=== PATIENT | female | born 1955 | race Caucasian/White ===

== ENCOUNTER 2021-05-05 13:38 | Emergency (ER) | payer OTHER, SELFPAY ==
--- NOTE | ~2021-05-05 | US_ITS ---
EXAMINATION: US VENOUS WITH DOPPLER LOWER EXTREMITY, LEFT CLINICAL INFORMATION: Left calf pain. Evaluate for deep vein thrombosis. COMPARISON: None TECHNIQUE: Ultrasound of the deep veins is performed from the hip to the calf with compression sonography and color and pulse Doppler assessment. Spectral analysis with color-flow imaging is performed. FINDINGS: There is normal venous compression and respiratory variation and augmented flow. The visualized common femoral vein, superficial femoral vein, profunda femoral vein, popliteal vein, and the trifurcation region shows no evidence of deep venous thrombosis. Witt's cyst measuring 2.1 x 3.7 x 1.0 cm. No additional soft tissue mass or fluid collection. If the patient's symptoms persist, follow up ultrasound in 5 days 7 days might be of value to exclude proximal propagation from a non-visualized calf vein. US/US venous duplex LE IMPRESSION: 1. No DVT demonstrated in the left lower extremity. 2. Small left Witt's cyst.
--- NOTE | ~2021-05-05 | XR_ITS ---
EXAMINATION: XR KNEE, LEFT CLINICAL INFORMATION: Posterior knee pain. COMPARISON: None TECHNIQUE: Four views of the left knee. FINDINGS: Bones and soft tissues are unremarkable. An enthesis is noted at the superior aspect of the patella. No fracture or joint effusion. Alignment is anatomic. Joint spaces are well maintained. No abnormal soft tissue calcification. XR/XR knee LT 4V IMPRESSION: No acute abnormality.
[2021-05-05 14:40] VITALS: BP 169/58; PULSE 96; RESP 18; TEMP 37.1; O2SAT 98; BMI 25.0
[2021-05-05 18:41] LABS: MANUAL DIFF FLAG NO
[2021-05-05 18:42] LABS: Basophils Percent Auto 0.6 % (0-2); Eosinophils Absolute Auto 0.1 X10*3/uL (0.0-0.4); Eosinophils Percent Auto 1.4 % (0-4); Hemoglobin 13.4 g/dl (12.0-16.0); Imm Gran Abs Auto 0.01 X10*3/uL (0.00-0.03); Imm Gran Pct Auto 0.2 % (0.0-0.4); Lymphocytes Absolute Auto 2.3 X10*3/uL (1.2-4.9); Lymphocytes Percent Auto 36.8 % (20-40); Mean Corpuscular HGB Conc 32.7 g/dl (31.0-35.0); Mean Corpuscular Hemoglobin 28.6 pg (27.0-33.0); Mean Corpuscular Volume 87.6 fL (80-98); Monocytes Absolute Auto 0.4 X10*3/uL (0.1-1.2); Monocytes Percent Auto 6.8 % (2-11); Neutrophils Absolute Auto 3.5 X10*3/uL (2.0-8.3); Neutrophils Percent Auto 54.2 % (45-73); Platelet Count 266 X10*3/uL (160-400); Red Blood Count 4.68 X10*6/uL (4.20-5.50); Red Cell Distribution Width 12.3 % (11.0-16.0); White Blood Count 6.4 X10*3/uL (4.8-10.8)
[2021-05-05 18:51] LABS: INTERNATIONAL NORM RATIO 0.9 (0.9-1.1); Prothrombin Time 10.5 SEC (9.9-13.0)
[2021-05-05 18:54] LABS: Partial Thromboplastin Time 31.9 SEC (24.1-38.0)
--- NOTE | 2021-05-05 18:57 | ED.EXTPRO ---
HPI - Extremity Problem General Chief complaint: Extremity Problem Stated complaint: pain in knee Time Seen by Provider: 05/05/21 17:07 Source: patient Mode of arrival: ambulatory Limitations: no limitations History of Present Illness HPI Narrative: Patient presents to ED for left posterior knee pain going to calf for the past couple of days. Patient denies any chest pain, shortness of breath, redness left lower extremity, recent trauma, fever, chills, shortness of breath, recent surgery, any history of blood clots. MD Complaint: extremity pain Related Data Allergies Allergy/AdvReac Type Severity Reaction Status Date / Time cephalexin [From KEFLEX] Allergy Intermediate HIVES Verified 05/05/21 14:40 codeine [CODEINE] Allergy Intermediate VOMITING Verified 05/05/21 14:40 naproxen [From ALEVE] Allergy Intermediate HIVES Verified 05/05/21 14:40 oxycodone [OXYCODONE] Allergy Intermediate VOMITING Verified 05/05/21 14:40 Penicillins [PENICILLINS] Allergy Intermediate HIVES Verified 05/05/21 14:40 Review of Systems Review of Systems: Yes all other systems are reviewed and are negative Constitutional: Constitutional: Reports as per HPI and Reports no additional constitutional complaints Eyes: Eyes: Reports as per HPI and Reports no additional eye complaints ENT: Reports system reviewed and no additional complaints, except as documented and Reports as per HPI Cardiovascular: Cardiovascular: Reports as per HPI and Reports no additional cardiovascular complaints Respiratory: Respiratory: Reports as per HPI and Reports no additional respiratory complaints Gastrointestinal: Gastrointestinal: Reports as per HPI and Reports no additional gastrointestinal complaints Genitourinary: Genitourinary: Reports no additional female genitourinary complaints and Reports as per HPI Musculoskeletal: Musculoskeletal: Reports no additional musculoskeletal complaints and Reports as per HPI Comments: Posterior left knee pain and left calf pain Neurologic: Reports system reviewed and no additional complaints, except as documented and Reports as per HPI Psychiatric: Psychiatric: Reports no additional psychiatric complaints and Reports as per HPI [facility] Social History Social History Advance Directives: Yes Advance Directives Information Provided: No Advance Directives on File: No Physical Exam Vital Signs: Vital Signs: Last Vital Signs Temp 98.8 F 05/05/21 14:40 Pulse 96 05/05/21 14:40 Resp 18 05/05/21 14:40 BP 169/58 H 05/05/21 14:40 Pulse Ox 98 05/05/21 14:40 Body Mass Index 25.0 Const: General: cooperative, healthy appearing, comfortable, no acute distress, well developed, alert, awake and Physically active; No lethargic Orientation/consciousness: patient oriented x3 and No lethargic HENMT: Head: Yes normal to inspection, Yes No palpable skull fracture present, Yes normocephalic, Yes atraumatic and Yes abrasion Eyes: General: appearance normal, both eyes and all related structures Neck: Neck: Yes normal visual inspection, Yes full ROM, Yes no lymphadenopathy, Yes no meningeal signs, Yes trachea midline, Yes supple and No tender Chest: Chest palpation & inspection: normal inspection of the chest and normal palpation of entire chest wall Resp: Effort & Inspection: normal respiratory effort and able to speak in complete sentences Auscultation: clear to auscultation bilaterally Cardio: Jugular venous distension: no JVD Heart sounds: S1 normal heart sound present and S2 normal heart sound present GI: Inspection: Yes normal to inspection and No abdominal wall ecchymosis Palpation (GI): Soft to palpation, not firm, nontender, no guarding and not rigid : General: No CVA tenderness and Yes no CVA tenderness Back/Spine/Pelvis: Back: no CVA tenderness, No CVA tenderness and No back tenderness Skin: General skin exam: no rashes or lesions noted and elasticity normal Neuro: General: patient oriented x3, gait normal, no meningeal signs and CN's II-XI intact bilaterally Cranial nerves: Yes CN's II-XII intact bilaterally Extrem: Other: Right lower extremity normal or negative for any swelling redness calf pain or deformity. Motor/neuro/vascular exam intact Knee images: 1. Tenderness on palpation. Negative for any erythema or fluctuance. Negative for mass on palpation 2. Tenderness on palpation. Negative for swelling, erythema or mass on palpation. Left lower extremity vascular/motor/neuro exam is intact Psych: Appearance: grossly normal, well kempt and not disheveled Course Course Course Narrative: Patient was sent for left knee x-ray and left ultrasound. Labs will be sent. Reevaluation(s) Reevaluation #1: Ultrasound negative for blood clot. X-ray negative for fractures. Waiting for labs Time: 19:06 MDM - Extremity (Nontraumatic) MDM Narrative Medical decision making narrative: Witt cysts Lab Data Result diagrams: 05/05/21 18:36 05/05/21 18:36 Labs: Lab Results 05/05/21 Range/Units 18:36 PT 10.5 (9.9-13.0) SEC INR 0.9 (0.9-1.1) APTT 31.9 (24.1-38.0) SEC Discharge Plan Discharge Clinical Impression: Witt's cyst of knee Patient Disposition: Home, Self-Care Instructions: Bakers Cyst (ED) Additional Instructions: X-ray came back negative for fracture. Your blood work came back normal. Ultrasound came negative for blood clot. Ultrasound shows Witt cyst. Return to the ED for swelling of lower extremities, redness, worsening calf pain, knee swelling, knee pain, redness of knee, inability to bend knee, chest pain, shortness of breath, coughing up blood, or any other concerning symptoms. Tylenol can be taking [id number]. Please follow-up with your PCP Referrals: Vinicio Merino MD [Physician] - 2 days (Witt cysts) Print Language: Slovak
[2021-05-05 19:11] LABS: Alanine Aminotransferase 15 U/L (0-31); Albumin Level 4.6 g/dL (3.5-5.0); Alkaline Phosphatase 87 U/L (39-117); Anion Gap 14 (12-20); Aspartate Amino Transferase 18 U/L (5-31); Bilirubin Total 0.3 mg/dL (0.0-1.0); Blood Urea Nitrogen 12 mg/dL (9-16); Calcium 9.7 mg/dL (8.4-10.2); Carbon Dioxide 28 mmol/L (22-29); Chloride 105 mmol/L (96-108); Creatinine Clr Calc Pharmacy 68.1; Estimated Glomerular Filt Rate > 60; Glucose Random 95 mg/dL (60-115); Potassium 3.8 mmol/L (3.3-5.1); Sodium 143 mmol/L (135-145)
== END 2021-05-05 19:54 | disposition home or self-care (01) ==
PROVIDERS: Physician Assistant; Emergency Provider Emergency Medicine
DX: M71.22 Synovial cyst of popliteal space [Baker], left knee (principal); M25.562 Pain in left knee
CPT/HCPCS: 36415; 73564; 80053; 85025; 85610; 85730; 93971; 99283; 99284

== ENCOUNTER 2021-05-20 09:46 | Outpatient (REF) | payer OTHER, SELFPAY | END 2021-05-20 09:47 | disposition home or self-care (01) | LOC: HO.LAB 09:46 | PROVIDERS: PCP Internal Medicine; Visit Provider Internal Medicine | DX: Z20.822 Contact with and (suspected) exposure to COVID-19 (principal) | CPT/HCPCS: C9803; U0003; U0005 ==

== ENCOUNTER → 2021-05-22 12:50 | Outpatient (BNVA) | payer OTHER, SELFPAY | PROVIDERS: Visit Provider Physician Assistant ==

== ENCOUNTER 2021-06-02 07:51 | Outpatient (REF) | payer OTHER, SELFPAY ==
--- NOTE | ~2021-06-02 | XR_ITS ---
EXAMINATION: CR X-RAY KNEE STANDING BILATERAL CLINICAL INFORMATION: Left knee Witt's cyst. COMPARISON: Left knee radiographs and left lower extremity venous Doppler study dated 05/05/2021. TECHNIQUE: Standing AP views of the bilateral knees were obtained along with axial and lateral views of the left knee. FINDINGS: There is no acute fracture or dislocation. No significant tricompartmental degenerative joint changes are seen. There is a small spur at the patellar quadriceps insertion anteriorly without surrounding abnormality. There is no joint effusion. The soft tissues are unremarkable. XR/XR knee standing BI IMPRESSION: Unremarkable bilateral knees.
--- NOTE | ~2021-06-02 | XR_ITS ---
EXAMINATION: CR X-RAY KNEE STANDING BILATERAL CLINICAL INFORMATION: Left knee Witt's cyst. COMPARISON: Left knee radiographs and left lower extremity venous Doppler study dated 05/05/2021. TECHNIQUE: Standing AP views of the bilateral knees were obtained along with axial and lateral views of the left knee. FINDINGS: There is no acute fracture or dislocation. No significant tricompartmental degenerative joint changes are seen. There is a small spur at the patellar quadriceps insertion anteriorly without surrounding abnormality. There is no joint effusion. The soft tissues are unremarkable. XR/XR knee LT 3V IMPRESSION: Unremarkable bilateral knees.
== END 2021-06-02 07:52 | disposition home or self-care (01) ==
LOC: HO.HOSX 07:51
PROVIDERS: Visit Provider Physician Assistant
DX: M71.22 Synovial cyst of popliteal space [Baker], left knee (principal)
CPT/HCPCS: 20610; 73562; 73565; J1040

== ENCOUNTER → 2021-07-06 09:52 | Outpatient (BNVA) | payer OTHER, SELFPAY | PROVIDERS: PCP Internal Medicine; Visit Provider Physician Assistant ==

== ENCOUNTER 2021-09-09 16:00 | Outpatient (RCR) | payer OTHER, SELFPAY ==
--- NOTE | 2021-06-30 08:01 | MHC.PT.EP ---
[facility] [place] Office [place] Office [place] Office [address] [phone] F: [phone] F: [phone] F: [phone] F: [phone] Physical Therapy Plan of Care Date of Evaluation: Date of Surgery: Diagnosis: This is a 65 yo female presenting to skilled PT with a script for synovial cyst of popliteal space L knee. Assessment: This is a 65 yo female presenting to skilled PT with a script for synovial cyst of popliteal space L knee. Patient is being followed by [facility] ortho and reports that this pain began back in May. She had an US which revealed a small polo's cyst. She had a cortisone injection which was somewhat helpful and will follow up with ortho soon. Pain is located medial patella 90% of the time but can be lateral and anterior as well. Pain is sore, like a bad toothache. She wears inserts in her shoes. Pain increases with stairs, walking, carrying objects. Assessment reveals pain that ranges up to a 8/10. She demos decreased hip ROM, decreased quad and hip strength, impaired gait pattern, TTP throughout patella tendon, joint lines medial and lateral, ITB and popliteal fossa, impaired patella joint mobility as well as gross functional decline with weightbearing activities, kneeling. She is a good candidate for skilled PT 2x/wk for 5wks. Frequency and Duration: The patient will be seen 2x/wk for 5wks Short Term Goals: I in HEP Demo normal knee and hip AROM Demo proper quad activation without cuing from PT Client Service Supervisor Goals: Demo at least 4+/5 MMT BLE Improve LEFs by 10 points Report pain is no more than a 2/10 at the worst Demo reciprocal gait on stairs Treatment Plan: Modalities to reduce pain, spasms and effusion. Manual therapy to restore motion and function. Therapeutic exercise to improve strength and flexibility. Neuromuscular re-education for posture and balance. Therapeutic activities to return to functional activities of daily living. Electronically signed by: Navya Garcia PT Please sign and return to therapist. Thank you for your referral.
--- NOTE | 2021-10-15 13:24 | MHC.PT.DC ---
[facility] [place] Office [place] Office [place] Office [address] [phone] F: [phone] F: [phone] F: [phone] F: [phone] Physical Therapy Discharge Report Diagnosis: This is a 65 yo female presenting to skilled PT with a script for synovial cyst of popliteal space L knee. Date of Surgery: Date of Evaluation: 06/29/21 Date of Discharge: 10/15/21 Treatments to Date: 8 Cancellations to Date: 0 No Shows to Date: 0 Discharge Status: Achieved Goals Improved Function Independent with HEP Discharge Summary: Patient roger good ROM and strength. Roger I in HEP without pain but fatigues. She understands her program, has met most of her goals, understands her anatomy and is ready for DC at this time. Electronically signed by: Navya Garcia PT Please sign and return to therapist. Thank you for your referral.
== END 2021-10-15 13:24 | disposition home or self-care (01) ==
LOC: HO.PTCHIC 16:00
PROVIDERS: PCP Internal Medicine; Visit Provider Physician Assistant
DX: M71.22 Synovial cyst of popliteal space [Baker], left knee (principal)
CPT/HCPCS: 97110; 97112; 97140; 97161

== ENCOUNTER 2021-09-23 07:25 | Outpatient (REF) | payer OTHER, SELFPAY ==
[2021-09-23 08:05] LABS: COVID-19 Test Negative (Negative); IDNOW Serial# 16C4AD1C
== END 2021-09-23 07:26 | disposition home or self-care (01) ==
LOC: HO.LAB 07:25
PROVIDERS: PCP Internal Medicine; Visit Provider Internal Medicine
DX: Z20.822 Contact with and (suspected) exposure to COVID-19 (principal)
CPT/HCPCS: 36415; 87635; C9803

== ENCOUNTER 2022-03-19 08:25 | Day surgery (SDC) | payer OTHER, SELFPAY ==
[2022-03-15 14:13] VITALS: BMI 24.5
--- NOTE | 2022-03-18 09:56 | HO.ANESPROP2 ---
Documented by User: Caren Nixon NP 03/18/22 09:57 HPI - Anesthesia Eval Consult details Narrative: 66yo F for Colonoscopy PMFSH Active Problems Active Problems: All Active Problems (Updated 05/22/21 @ 13:43 by Cassie Salazar PA-C) Synovial cyst of popliteal space [Witt], left knee (Acute) Past Medical History Medical History High blood pressure High cholesterol Social History Social History Patient Tobacco Use Status: Former Tobacco user Quit Date: years ago Use of substances other than those prescribed or required for medical reasons: No Are you DNR?: No Advance Directives: No Advance Directives Information Provided: Yes Current occupational status: employed 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 Allergies Allergy/AdvReac Type Severity Reaction Status Date / Time cephalexin [From KEFLEX] Allergy Intermediate HIVES Verified 06/02/21 13:41 codeine [CODEINE] Allergy Intermediate VOMITING Verified 06/02/21 13:41 naproxen [From ALEVE] Allergy Intermediate HIVES Verified 06/02/21 13:41 oxycodone [OXYCODONE] Allergy Intermediate VOMITING Verified 06/02/21 13:41 Penicillins [PENICILLINS] Allergy Intermediate HIVES Verified 06/02/21 13:41 Home Medications Medication Instructions Recorded Confirmed Last Taken Type amlodipine 5 mg tablet 5 mg PO DAILY 05/22/21 03/19/22 03/19/22 History aspirin 81 mg chewable tablet 81 mg PO DAILY 05/22/21 03/19/22 Unknown History atorvastatin 10 mg tablet 10 mg PO DAILY 05/22/21 03/19/22 Unknown History Exam Exam Date and Time: March 18, 2022 0956 Height,Weight and Vital Signs: Height 5 ft 4 in Weight 64.864 kg Assessment and Plan Assessment Anesthesia Assessment: Chart Reviewed Documented by User: Bin Bello MD 03/19/22 09:14 [facility] Past Medical History Medical History High blood pressure High cholesterol Family History Family history of problems with anesthesia: No Surgical History History of Problems with Anesthesia: No Social History Social History Patient Tobacco Use Status: Former Tobacco user Quit Date: years ago Use of substances other than those prescribed or required for medical reasons: No Are you DNR?: No Advance Directives: No Advance Directives Information Provided: Yes Current occupational status: employed 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 Allergies Allergy/AdvReac Type Severity Reaction Status Date / Time cephalexin [From KEFLEX] Allergy Intermediate HIVES Verified 06/02/21 13:41 codeine [CODEINE] Allergy Intermediate VOMITING Verified 06/02/21 13:41 naproxen [From ALEVE] Allergy Intermediate HIVES Verified 06/02/21 13:41 oxycodone [OXYCODONE] Allergy Intermediate VOMITING Verified 06/02/21 13:41 Penicillins [PENICILLINS] Allergy Intermediate HIVES Verified 06/02/21 13:41 Home Medications Medication Instructions Recorded Confirmed Last Taken Type amlodipine 5 mg tablet 5 mg PO DAILY 05/22/21 03/19/22 03/19/22 History aspirin 81 mg chewable tablet 81 mg PO DAILY 05/22/21 03/19/22 Unknown History atorvastatin 10 mg tablet 10 mg PO DAILY 05/22/21 03/19/22 Unknown History Exam Airway Mallampati Class: II TM Dist: >3cm Neck ROM: Full Assessment and Plan Assessment Anesthesia Assessment: Anesthesia Plan Discussed Final Anesthetic Review Family History of Problems with Anesthesia: No History of Problems with Anesthesia: No NPO: Yes ASA Class: II Final Preanesthetic Review: No Changes in Pt Med Stat, Meds/Allgs Chart Reviewed, Consent Obtained/Reviewed and Anes Risks/Benef Reviewed Patient Risk: Low Procedure Risk: Low Anesthetic Plan Anesthetic Plan: MAC: Disposition: Standard PACU
[2022-03-19 08:57] VITALS: BMI 23.5
[2022-03-19 09:08] VITALS: BP 161/70; PULSE 82; RESP 17; TEMP 36.8; O2SAT 96
[2022-03-19] MEDS: Lactated Ringers 1,000 ML 100 ML IVCONT (09:54)
--- NOTE | 2022-03-19 10:11 | PM.OP ---
Brief Operative Note Date of Service: 03/19/22 Pre-op diagnosis: screening Post-op diagnosis: same Procedure: colonoscopy Surgeon: Stephane Barreto Anesthesia: MAC Was an Steamfitter Apprentice used for this Procedure?: No Estimated blood loss (mL): 0 Pathology: none sent Condition: stable Disposition: PACU
--- NOTE | 2022-03-19 10:11 | MHC.SHP ---
Pre-Procedural Eval Section A Date of Service: 03/19/22 Section B Chief Complaint: screening Details of Present Illness: see H&P no changes Relevant Family History (Specify if Yes): No Relevant Social History: None Present Medications: see Short Stay Collaborative assessment Medical History: No relevant PMH History of Previous Operations: No relevant previous surgery Allergies: Allergies Allergy/AdvReac Type Severity Reaction Status Date / Time cephalexin [From KEFLEX] Allergy Intermediate HIVES Verified 06/02/21 13:41 codeine [CODEINE] Allergy Intermediate VOMITING Verified 06/02/21 13:41 naproxen [From ALEVE] Allergy Intermediate HIVES Verified 06/02/21 13:41 oxycodone [OXYCODONE] Allergy Intermediate VOMITING Verified 06/02/21 13:41 Penicillins [PENICILLINS] Allergy Intermediate HIVES Verified 06/02/21 13:41 Review of Systems Sugical H&P ROS: Negative: Constitution, Cardiovascular, Respiratory, Neurological, Psychiatric, Hem-Onc, Allergic/Immunologic, Gastrointestinal, Genitourinary, Musculoskeletal, Integumentary, Endocrine and Eyes/Ears/Nose/Throat Exam Surgical H&P Exam: Normal: HEENT, Normal: Heart, Normal: Lungs, Normal: Extremities, Normal: Abdomen, Normal: Skin and Normal: Neurological Plan Diagnosis/Plan: Unchanged I have reviewed the history and physical and performed a pertinent physical examination on my patient. No changes have occurred unless specified.
[2022-03-19 10:40] VITALS: BP 104/52; PULSE 80; RESP 16; TEMP 36.3; O2SAT 99
[2022-03-19 10:55] VITALS: BP 125/66; PULSE 72; RESP 16; O2SAT 99
[2022-03-19 11:10] VITALS: BP 135/68; PULSE 79; RESP 16; TEMP 36.6; O2SAT 98
--- NOTE | 2022-03-19 19:30 | OP_ITS ---
SURGEON: Stephane Barreto MD INDICATIONS: Colon cancer screening and family history of colon polyps. PREOPERATIVE DIAGNOSIS: POSTOPERATIVE DIAGNOSIS: PROCEDURE PERFORMED: Colonoscopy to the terminal ileum. ESTIMATED BLOOD LOSS: COMPLICATIONS: ANESTHESIA: ASSISTANTS: SPECIMENS: MEDICATIONS: Monitored anesthesia care. DESCRIPTION OF PROCEDURE: History and physical were performed. The risks and benefits of the procedure were explained to the patient. Informed consent was obtained. The patient was placed in the left lateral decubitus position. A digital rectal exam was performed and was found to be normal. The Olympus pediatric video colonoscope was introduced into the rectum and advanced into the cecum without difficulty. The cecum was identified by transillumination, palpation, and identification of the ileocecal valve. Examination was performed and the scope was removed. She tolerated the procedure well and was sent to recovery area in stable condition. FINDINGS: The terminal ileum was examined and appeared normal. The visualized colonic mucosa was within normal limits without evidence of masses or ulcers. No polyps were identified. There was mild sigmoid diverticulosis. Retroflexed examination showed some small internal hemorrhoids. IMPRESSION: Normal colonoscopy. RECOMMENDATION: 1. Follow up as needed. 2. Repeat colonoscopy is recommended in 5 years because of family history. MD CELY Foster/ELVIA / [id number]
== END 2022-03-19 11:40 | disposition home or self-care (01) ==
PROVIDERS: PCP Internal Medicine; Visit Provider Internal Medicine Gastroenterology
PROC: 0DJD8ZZ Inspection of Lower Intestinal Tract, Via Natural or Artificial Opening Endoscopic (ICD-10-PCS; CPT 45378; principal; 2022-03-19 09:40)
DX: Z12.11 Encounter for screening for malignant neoplasm of colon (principal); Z83.71 Family history of colonic polyps; K57.30 Diverticulosis of large intestine without perforation or abscess without bleeding; K64.8 Other hemorrhoids; I10 Essential (primary) hypertension; E78.00 Pure hypercholesterolemia, unspecified; Z79.82 Long term (current) use of aspirin; Z79.899 Other long term (current) drug therapy; Z88.0 Allergy status to penicillin; Z88.1 Allergy status to other antibiotic agents; Z88.8 Allergy status to other drugs, medicaments and biological substances; Z87.891 Personal history of nicotine dependence
CPT/HCPCS: 45378

== ENCOUNTER 2022-06-11 07:17 | Outpatient (REF) | payer OTHER, SELFPAY ==
--- NOTE | ~2022-06-11 | XR_ITS ---
EXAMINATION: XR KNEE, AP STANDING, BILATERAL CLINICAL INFORMATION: Pain COMPARISON: 06/02/2021 and 05/05/2021. TECHNIQUE: AP standing view of both knees as well as lateral and sunrise views of the right knee. FINDINGS: AP standing views of both knees do not demonstrate any evidence of acute fracture or dislocation. Knee joint spaces are maintained. There is question of some faint right medial meniscal calcification in the right knee. There is a right knee effusion. There is some mild spurring at the patellofemoral joint. No narrowing of the patellofemoral joint is appreciated. There is a patellar spur site of insertion of the quadriceps tendon. XR/XR knee standing BI IMPRESSION: Degenerative change of the right knee patellofemoral joint with right knee effusion.
--- NOTE | ~2022-06-11 | XR_ITS ---
EXAMINATION: XR KNEE, RIGHT. AP standing view of both knees CLINICAL INFORMATION: Pain COMPARISON: June 02, 2021 and May 05, 2021 TECHNIQUE: AP standing view of both knees as well as lateral and sunrise views of the right knee. FINDINGS: AP standing views of both knees do not demonstrate any evidence of acute fracture or dislocation. Knee joint spaces are maintained. There is question of some faint right medial meniscal calcification in the right knee. There is a right knee effusion. There is some mild spurring at the patellofemoral joint. No narrowing of the patellofemoral joint is appreciated. There is a patella spur site of insertion of the quadriceps tendon. XR/XR knee RT 2V IMPRESSION: Degenerative change of the right knee patellofemoral joint with right knee effusion.
== END 2022-06-11 07:18 | disposition home or self-care (01) ==
LOC: HO.HOSX 07:17
PROVIDERS: Visit Provider Physician Assistant
DX: M23.91 Unspecified internal derangement of right knee (principal)
CPT/HCPCS: 20610; 73560; 73565; J1040